=== PATIENT | male | born 1975 | race Caucasian/White ===

== ENCOUNTER 2017-05-09 17:12 | Emergency (ER) | payer SELFPAY ==
--- NOTE | 2017-05-09 17:13 | UC ---
Cardiac HPI - HPI Summary HPI Summary: 42 year old male continues to have severe LUQ pain after being seen by his primary care physician. I will send him to the er. - History of Current Complaint Stated Complaint: STABBING PAIN LEFT SIDE Time Seen by Provider: 05/09/17 17:13 Hx Obtained From: Patient Onset/Duration: Sudden Onset Timing: Constant Initial Severity: Moderate Current Severity: Moderate - Allergy/Home Medications Allergies/Adverse Reactions: Allergies Allergy/AdvReac Type Severity Reaction Status Date / Time No Known Allergies Allergy Verified 05/09/17 17:24 PMH/Surg Hx/FS Hx/Imm Hx Previously Healthy: Yes Other History Of: Negative For: HIV, Hepatitis B, Hepatitis C, Anticoagulant Therapy - Surgical History Surgical History: Yes Surgery Procedure, Year, and Place: left knee at age 13 yrs; right ankle fxs with metal - Family History Known Family History: Positive: Hypertension, Diabetes Negative: Cardiac Disease - Social History Alcohol Use: Daily Alcohol Amount: 2 beers Substance Use Type: None Smoking Status (MU): Former Smoker Review of Systems Constitutional: Negative Skin: Negative Eyes: Negative ENT: Negative Respiratory: Negative Cardiovascular: Negative Gastrointestinal: Abdominal Pain Genitourinary: Negative Motor: Negative Neurovascular: Negative Musculoskeletal: Negative Neurological: Negative Psychological: Negative All Other Systems Reviewed And Are Negative: Yes Physical Exam Triage Information Reviewed: Yes Vital Signs Reviewed: Yes Eye Exam: Normal ENT Exam: Normal Dental Exam: Normal Neck exam: Normal Neck: Positive: 1 Respiratory Exam: Normal Cardiovascular Exam: Normal Abdominal Exam: Normal Musculoskeletal: Positive: Other: - luq pain Neurological Exam: Normal Psychological Exam: Normal Skin Exam: Normal - Clinical Impression Provider Diagnoses: luq pain Discharge - Discharge Plan Condition: Stable Disposition: OTHER Discharge Disposition Comment: patient suggested to go to the er Patient Education Materials: Acute Abdominal Pain (ED) Referrals: Walter Benoit MD [Primary Care Provider] - Additional Instructions: patient suggested to go to the er for severe luq pain.
[2017-05-09 17:26] VITALS: BP 145/91
== END 2017-05-09 17:25 ==
LOC: UCCORT 17:12
DX: R10.12 Left upper quadrant pain (principal); Z87.891 Personal history of nicotine dependence
CPT/HCPCS: 93005; 99212; G0463

== ENCOUNTER 2018-09-02 07:09 | Emergency (ER) | payer BC ==
[2018-09-02 07:24] VITALS: BP 139/91
[2018-09-02] MEDS ORDERED: Albuterol/Ipratropium NEB.SOL* Albuterol 2.5 MG/Ipratropium 0.5 MG 3 ML INH ONE (07:35)
[2018-09-02 07:58] LABS: Influenza A Molecular NEGATIVE (Negative); Influenza B Molecular NEGATIVE (Negative)
--- NOTE | 2018-09-02 08:16 | UC ---
Throat Pain/Nasal Lico HPI - HPI Summary HPI Summary: Patient presents to urgent care reporting 36 hours of progressive body aches, congestion, fatigue. Patient with a cough with mild secretions. Patient with some wheezing. Patient states he has a burning pain in the left side of his chest when he takes a deep breath. Patient does not feel short of breath. Patient's lightheadedness patient without nausea vomiting but decreased appetite. No diarrhea. Patient with coworker exposures to influenza. Patient has been taking NyQuil with improvement. Patient states he just feels very tired. Patient without fevers or vomiting. Patient did take NyQuil last night. Patient does have a history of diabetes and hypertension. Patient's medications reviewed this visit. - History of Current Complaint Chief Complaint: UCRespiratory Stated Complaint: CHEST CONGESTION Time Seen by Provider: 09/02/18 07:32 Hx Obtained From: Patient Onset/Duration: Sudden Onset Severity: Mild Pain Intensity: 0 Pain Scale Used: 0-10 Numeric - Allergies/Home Medications Allergies/Adverse Reactions: Allergies Allergy/AdvReac Type Severity Reaction Status Date / Time No Known Allergies Allergy Verified 09/02/18 07:19 Home Medications: Home Medications Dextromethorphn/Acetaminoph/Cp [Vicks Nyquil Cold & Flu N] 30 ml PO Q6H PRN [History Confirmed 09/02/18] Mirtazapine TAB* [Remeron TAB*] 30 mg PO BEDTIME 09/02/18 [History Confirmed ] RX: Losartan TAB* [Cozaar TAB*] 50 mg PO DAILY 09/02/18 [History Confirmed 09/02] Sertraline* [Zoloft*] 50 mg PO DAILY 09/02/18 [History Confirmed 09/02/18] metFORMIN* [Glucophage 500 MG TAB *] 500 mg PO BID 09/02/18 [History Confirmed 09/02/18] PMH/Surg Hx/FS Hx/Imm Hx Endocrine History: Diabetes Cardiovascular History: Hypertension, Other - neg stress test approx 18 months GI/ History: Gastroesophageal Reflux Other History Of: Negative For: HIV, Hepatitis B, Hepatitis C, Anticoagulant Therapy - Surgical History Surgical History: Yes Surgery Procedure, Year, and Place: left knee at age 13 yrs; right ankle fxs with metal - Family History Known Family History: Positive: Hypertension, Diabetes Negative: Cardiac Disease - Social History Occupation: Employed Full-time Lives: With Family Alcohol Use: Daily Alcohol Amount: 2 beers Substance Use Type: None Smoking Status (MU): Former Smoker When Did the Patient Quit Smoking/Using Tobacco: ~2001 Review of Systems All Other Systems Reviewed And Are Negative: Yes Constitutional: Positive: Chills, Fatigue. Negative: Fever Skin: Positive: Negative Eyes: Positive: Negative ENT: Positive: Nasal Discharge, Sinus Congestion Respiratory: Positive: Cough Motor: Positive: Negative Neurovascular: Positive: Negative Is Patient Immunocompromised?: No Physical Exam - Summary Physical Exam Summary: Vital Signs Reviewed: Yes A+Ox3, tired appearing Eyes: Conjunctiva Clear, ABIMAEL. EOM intact and full ENT: Hearing grossly normal TM x 2 clear, turbinates inflammed and boggy, + PND , mmoist, uvula midline, no exudate, no erythema Neck: Positive: Supple Respiratory: Positive: mild cough, diffuse end expiratory wheeze, slight ronchi left chest no reproducible pain Cardiovascular: RRR nl s1, s2 no m/r CBT <2 sec abd soft + BS nt/nd no guarding, no distension Musculoskeletal Exam: MONTILLA x 4 without difficulty Strength Intact, ROM Intact Neurological: Positive: Alert, + sensation throughout Psychological: Positive: Normal Response To Family Skin: Positive: no rash, no ecchymosis Triage Information Reviewed: Yes Vital Signs: Initial Vital Signs Temp 97.7 F 09/02/18 07:18 Pulse 80 09/02/18 07:18 Resp 18 09/02/18 07:18 BP 139/91 09/02/18 07:18 Pulse Ox 97 09/02/18 07:18 Diagnostics - Radiology No standard instances Radiology Interpretation Completed By: Radiologist - Patient Name: BRIANNE AGUILAR III Medical Record#: [id number] Ordering Physician: Stacy Valdes MD Acct.#: [id number] : 1975 Age: 43 Sex: M Location: [facility] Exam Date: 09/02/18734 ADM Status: REG ER Order Information: CHEST PA & LAT 2 VWS Accession Number: [id number] CPT: 00193 Indication: Cough and wheezing. 2 views of the chest including dual energy PA views demonstrates no mediastinal shift. Heart is of normal size and configuration. Lung ace are clear. IMPRESSION: No active cardiopulmonary disease is noted. <Electronically signed by Whit Crystal MD in OV> [id number] Dictated By: Whit Crystal MD Dictated Date/Time: 09/02/18806 Transcribed Date/Time: 09/02/18805 Copy to: CC:Walter Benoit MD; Stacy Valdes MD Imaging - [facility] Imaging - [place] [facility] [address] [place] [address] [address] [address] ph ([phone]) ph ([phone]) ph ([phone]) This report is only to be considered final once signed by the Provider(s) as displayed in the "< Electronically Signed by >" field (s). Absence of a signature indicates the report is in a draft status and still needs to be finalized. In the event this document was created by someone other than the signing Provider, the individual initiating the document will be listed in the "Entered by:" or "Dictated by:" ace. 1 of 1 - EKG Cardiac Rate: NL Cardiac Rhythm: Sinus: Normal - 72 Ectopy: None ST Segment: Normal EKG Comparison: No Significant Change - 05/09/17 Re-Evaluation - Re-Evaluation First Eval Change: Improved - Patient states that helped. Patient did cough up little more production of yellow sputum. Lungs sounds improved. Chest x-ray negative. Discussed with patient length periods secretion precautions, humidified air, careful with decongestants. Patient be given a prescription for amoxicillin that he's been instructed to start on Sunday the symptoms persist or worsen. Patient is a diabetic so with start of his symptoms continue. Patient comfortable in agreement with plan. Throat Pain/Nasal Course/Dx - Course Course Of Treatment: Patient presents to urgent care with his . Patient with 36 hours of progressive body aches, congestion, cough with end expiratory wheeze and mild adduction. No fevers or chills. Patient is a feels very fatigued. Patient's been taking NyQuil with improvement. Patient has been eating but decreased appetite. No diarrhea. Patient has had sick contacts at work. Patient states he does have a little bit of left-sided chest pain with deep inspiration only. No shortness of breath or chest pain with activity or walking. No not diaphoresis. Vital signs reveal mildly elevated blood pressure. Patient does take blood pressure medication has been taking NyQuil. Discussed with patient precautions of decongestants. Patient with head congestion. Patient with some diffuse wheezing and expiratory as well as little bit of rhonchi on the left. EKG is unchanged and unremarkable from 2016. Check flu. DuoNeb. Reassess. - Differential Dx/Diagnosis Provider Diagnosis: Upper respiratory infection Discharge - Sign-Out/Discharge Documenting (check all that apply): Patient Departure All imaging exams completed and their final reports reviewed: Yes - Discharge Plan Condition: Stable Disposition: HOME Prescriptions: RX: Albuterol HFA INHALER* [Ventolin HFA Inhaler*] 2 puff INH Q4H PRN #1 mdi PRN Reason: wheeze Amoxicillin PO (*) [Amoxicillin 500 MG CAP*] 500 mg PO Q12H #20 cap Patient Education Materials: Upper Respiratory Infection (ED) Forms: *Gen. Provider Communication, *Work Release Referrals: Waletr Benoit MD [Primary Care Provider] - Additional Instructions: -Use your albuterol puffer - 2 puffs ever 4-6 hours for the next 3 days - then as needed -- These infections are spread by secretions - do NOT share eating or drinking utensils - clean items you share with other people such as cell phones, computer mouse, TV remote, computer tablets,etc. If your symptoms persist, you develop fevers, your sputum changes - a prescription for antibiotics has been sent to your pharmacy. You may start on Sunday as needed. Once you start to feel better, change your toothbrush and your pillowcase. -Stay well hydrated - avoid excess caffeine and all alcohol - eat regular, healthy meals - humidify the air in the room where you sleep - boil water, run a hot steam shower, vaporizer, cups of water by heat register - Okay to take over the counter cough medications. Decongestants may increased blood pressure (Phenylepherine, pseudoephederine) -Contact your doctor to arrange a follow-up appointment this week. Call your doctor, return here or go to the emergency department with any questions or concerns - Billing Disposition and Condition Condition: STABLE Disposition: Home
[2018-09-02] MEDS ORDERED: Albuterol HFA INHALER* 8 gm MDI INH ONE (09:29)
== END 2018-09-02 08:24 | disposition home or self-care (01) ==
LOC: UCCORT 07:09
DX: J06.9 Acute upper respiratory infection, unspecified (principal); E11.9 Type 2 diabetes mellitus without complications; I10 Essential (primary) hypertension; Z79.84 Long term (current) use of oral hypoglycemic drugs; Z87.891 Personal history of nicotine dependence; Z79.899 Other long term (current) drug therapy
CPT/HCPCS: 71046; 93005; 99212; A9270-GY; G0463

== ENCOUNTER 2018-09-30 11:15 | Emergency (ER) | payer BC ==
[2018-09-30 11:44] VITALS: BP 126/86
--- NOTE | 2018-09-30 12:10 | UC ---
General HPI - HPI Summary HPI Summary: pt c/o an itchy rash x 2 days. began on his forearms and now involves his head/face, front of trunk and upper back. he has nothing below the waist. he has tried Benadryl without relief. he denies new exposures. he has no current or recent illness and no other complaints. he has not been outside to have a contact dermatitis. - History of Current Complaint Chief Complaint: UCRash Stated Complaint: SKIN CONCERN Time Seen by Provider: 09/30/18 12:01 Hx Obtained From: Patient Onset/Duration: Gradual Onset Timing: Constant Pain Intensity: 7 Associated Signs & Symptoms: Negative: Fever - Allergy/Home Medications Allergies/Adverse Reactions: Allergies Allergy/AdvReac Type Severity Reaction Status Date / Time No Known Allergies Allergy Verified 09/30/18 11:42 Home Medications: Home Medications diPHENhydraMINE PO* [Benadryl PO 25 MG TAB*] 25 mg PO Q6H PRN 09/30/18 [History Confirmed 09/30/18] PMH/Surg Hx/FS Hx/Imm Hx - Additional Past Medical History Additional PMH: sleep disturbance Endocrine History: Diabetes, Dyslipidemia Psychological History: Depression Other History Of: Negative For: HIV, Hepatitis B, Hepatitis C, Anticoagulant Therapy - Surgical History Surgical History: Yes Surgery Procedure, Year, and Place: left knee at age 13 yrs; right ankle fxs with metal - Family History Known Family History: Positive: Hypertension, Diabetes Negative: Cardiac Disease - Social History Occupation: Employed Full-time Alcohol Use: Daily Alcohol Amount: 2 beers Substance Use Type: None Smoking Status (MU): Former Smoker When Did the Patient Quit Smoking/Using Tobacco: ~2001 Review of Systems All Other Systems Reviewed And Are Negative: Yes Skin: Positive: Rash Physical Exam Triage Information Reviewed: Yes Appearance: Well-Appearing Vital Signs: Initial Vital Signs Temp 97.7 F 09/30/18 11:39 Pulse 88 09/30/18 11:39 Resp 17 09/30/18 11:39 BP 126/86 09/30/18 11:39 Pulse Ox 97 09/30/18 11:39 Vital Signs Reviewed: Yes Eyes: Positive: Conjunctiva Clear ENT: Negative: Nasal congestion, Nasal drainage Neck: Positive: Supple Respiratory: Positive: No respiratory distress Cardiovascular: Positive: RRR Musculoskeletal: Positive: ROM Intact, No Edema Neurological: Positive: Alert Psychological: Positive: Age Appropriate Behavior Skin Exam: Normal Skin: Positive: Rashes - macular to papular red areas on forearms, anterior trunk, upper back and head/face where more red and confluent. rest of back, palms and below waist is spared. signs of excoriation. no blistering or scale and not petechial. the rash does shannan. also, no burrows Course/Dx - Differential Dx - Multi-Symptom Differential Diagnoses: Other - no concern for fungal or bacterial infection. no concern for infestation. no hx to suggest contact dermatitis and pt denies current/recent illness to support viral. rash itself not typical of photosensitivity but distribution is mostly on areas of sun exposure. pt will avoid the sun. since benadryl not helping, will tx medrol pack and pt agrees to avoid all new exposure (different soaps, foods, detergents). - Diagnoses Provider Diagnosis: Rash Discharge - Sign-Out/Discharge Documenting (check all that apply): Patient Departure All imaging exams completed and their final reports reviewed: No Studies - Discharge Plan Condition: Stable Disposition: HOME Prescriptions: methylPREDNISolone [Medrol Dosepak 4 MG*] 0 mg PO .SEE LE INSTRUCTION #1 tab Patient Education Materials: Acute Rash (ED) Referrals: Walter Benoit MD [Primary Care Provider] - 7 Days - Billing Disposition and Condition Condition: STABLE Disposition: Home - Attestation Statements Provider Attestation: I was available for consult. This patient was seen by the J[facility]CO[facility]. The patient was not presented to, seen by, or examined by me. -Dominik
== END 2018-09-30 12:30 | disposition home or self-care (01) ==
LOC: UCCORT 11:15
DX: R21 Rash and other nonspecific skin eruption (principal); E11.9 Type 2 diabetes mellitus without complications; E78.5 Hyperlipidemia, unspecified; Z87.891 Personal history of nicotine dependence
CPT/HCPCS: 99212; G0463

== ENCOUNTER 2019-06-18 07:44 | Emergency (ER) | payer BC ==
[2019-06-18 08:02] VITALS: BP 123/94
--- NOTE | 2019-06-18 08:28 | UC ---
Respiratory Complaint HPI - HPI Summary HPI Summary: cough x 3 days cough is productive, moderate in severity worse with deep breathing, better with rest and fluid left side chest pain with coughing, + cold symptoms with nasal congestion, stuffy / runny nose, body aches, denies any fever, + chills, no sob - History of Current Complaint Chief Complaint: UCGeneralIllness Stated Complaint: COUGH,CONGESTION Time Seen by Provider: 06/18/19 08:02 Hx Obtained From: Patient Onset/Duration: Gradual Onset, Lasting Days - 3, Still Present Timing: Constant Severity Initially: Moderate Severity Currently: Moderate Pain Intensity: 7 Character: Cough: Productive Aggravating Factors: Exertion, Deep Breaths Alleviating Factors: Nothing Associated Signs And Symptoms: Positive: Chills, Pleuritic Chest Pain, URI, Nasal Congestion. Negative: Dyspnea, Fever, Wheezing, Hemoptysis, Dizziness, Hoarseness, Sinus Discomfort - Allergies/Home Medications Allergies/Adverse Reactions: Allergies Allergy/AdvReac Type Severity Reaction Status Date / Time No Known Allergies Allergy Verified 06/18/19 07:55 Home Medications: Home Medications Empaglifozin (NF) [Jardiance] 25 mg PO DAILY 06/18/19 [History Confirmed ] FLUoxetine CAP* [PROzac CAP*] 20 mg PO DAILY 06/18/19 [History Confirmed ] PMH/Surg Hx/FS Hx/Imm Hx Endocrine History: Diabetes Cardiovascular History: Hypertension Psychological History: Depression Other History Of: Negative For: HIV, Hepatitis B, Hepatitis C, Anticoagulant Therapy - Surgical History Surgical History: Yes Surgery Procedure, Year, and Place: left knee at age 13 yrs. right ankle fxs with metal - Family History Known Family History: Positive: Hypertension, Diabetes Negative: Cardiac Disease - Social History Alcohol Use: Occasionally Alcohol Amount: 2 beers Substance Use Type: None Smoking Status (MU): Former Smoker When Did the Patient Quit Smoking/Using Tobacco: ~2001 Review of Systems All Other Systems Reviewed And Are Negative: Yes Is Patient Immunocompromised?: No Physical Exam Triage Information Reviewed: Yes Appearance: Well-Appearing, No Pain Distress, Well-Nourished Vital Signs: Initial Vital Signs Temp 98.2 F 06/18/19 07:57 Pulse 100 06/18/19 07:57 Resp 15 06/18/19 07:57 BP 123/94 06/18/19 07:57 Pulse Ox 95 06/18/19 07:57 Vital Signs Reviewed: Yes Eye Exam: Normal Eyes: Positive: Conjunctiva Clear ENT: Positive: Normal ENT inspection, Hearing grossly normal, Pharynx normal Neck: Positive: Supple, Nontender, No Lymphadenopathy Respiratory: Positive: Chest non-tender, Lungs clear, Normal breath sounds Cardiovascular: Positive: RRR, No Murmur, Pulses Normal Abdomen Description: Positive: Nontender, Soft Diagnostics - Radiology No standard instances Radiology Interpretation Completed By: Radiologist Summary of Radiographic Findings: chest xray report: Indication: Cough. 2 views of the chest including dual energy PA views demonstrate no mediastinal shift. Heart is of normal size and configuration. Lung ace are clear. IMPRESSION: No active cardiopulmonary disease is noted. Respiratory Course/Dx - Course Course Of Treatment: HTN: cont. current bp meds follow up with your pcp - Differential Dx/Diagnosis Provider Diagnosis: Bronchitis, Hypertension Discharge ED - Sign-Out/Discharge Documenting (check all that apply): Patient Departure All imaging exams completed and their final reports reviewed: Yes - Discharge Plan Condition: Stable Disposition: HOME Prescriptions: Benzonatate CAP* [Tessalon 100 MG CAP*] 100 mg PO TID PRN #21 cap PRN Reason: Cough Patient Education Materials: Acute Bronchitis (ED) Referrals: Walter Benoit MD [Primary Care Provider] - 7 Days - Billing Disposition and Condition Condition: STABLE Disposition: Home
== END 2019-06-18 08:36 | disposition home or self-care (01) ==
LOC: UCCORT 07:44
DX: J40 Bronchitis, not specified as acute or chronic (principal); I10 Essential (primary) hypertension; F32.9 Major depressive disorder, single episode, unspecified; E11.9 Type 2 diabetes mellitus without complications; Z87.891 Personal history of nicotine dependence; Z79.84 Long term (current) use of oral hypoglycemic drugs; Z79.899 Other long term (current) drug therapy
CPT/HCPCS: 71046; 99212; G0463